=== PATIENT | female | born 1985 | race African-American/Black ===

== ENCOUNTER 2020-05-17 00:10 | Emergency (ER) | payer MEDICAID ==
[~2020-05-17] VITALS: Ht 185.4 cm; Wt 66.0 kg
[2020-05-17] MEDS ORDERED: ACETAMINOPHEN 500MG TABLET PO ONE (00:45)
[2020-05-17] MEDS ORDERED: LIDOCAINE HCL 4% CREAM 76GM TUBE TP ONE (00:45)
[2020-05-17] MEDS ORDERED: IBUPROFEN 800MG TABLET PO ONE (00:45)
[2020-05-17 00:47] VITALS: BP 122/78
== END 2020-05-17 01:49 | disposition home or self-care (01) ==
LOC: ER 00:10
DX: T24.001A Burn of unspecified degree of unspecified site of right lower limb, except ankle and foot, initial encounter (principal); T79.9XXA Unspecified early complication of trauma, initial encounter
CPT/HCPCS: 99283; Z7610

== ENCOUNTER 2025-08-30 14:49 | Inpatient (IN) | payer MEDICAID ==
[~2025-08-30] VITALS: Ht 170.2 cm; Wt 70.3 kg
[2025-08-30 14:52] VITALS: O2SAT 99
[2025-08-30 16:09] LABS: BASOPHILS % 0.2 % (0.0-2.0); EOSINOPHILS % 0.2 % (0.0-5.0); HEMATOCRIT. 34.8 % (36.0-48.0); HEMOGLOBIN. 11.2 g/dL (12.0-16.0); LYMPHOCYTES % 7.1 % (20.0-50.0); MEAN PLATELET VOLUME 8.9 fl (7.4-10.4); MONOCYTES % 8.0 % (2.0-8.0); NEUTROPHILS % 84.5 % (40.0-76.0); PLATELET 228 x1000/uL (130-400); RED BLOOD CELL COUNT 4.02 mill/uL (4.2-5.4); RED CELL DISTRIBUTION WIDTH 15.3 % (11.6-14.6)
[2025-08-30 16:26] LABS: CREATININE 0.9 mg/dL (0.6-1.0)
[2025-08-30 16:27] LABS: UREA NITROGEN BLOOD 8 mg/dL (9-23)
[2025-08-30 16:28] LABS: ASPARTATE AMINOTRANSFERASE 21 IU/L (<34); TROPONIN I HIGH SENSITIVITY < 4 ng/L (3.0-34)
[2025-08-30 16:29] LABS: BILIRUBIN DIRECT 0.1 mg/dL (<=3.0); BILIRUBIN TOTAL 0.5 mg/dL (0.1-1.0)
[2025-08-30 16:40] LABS: PROTEIN TOTAL 7.4 g/dL (6.0-8.3)
[2025-08-30 16:55] LABS: HCG SCREEN NEGATIVE
[2025-08-30] MEDS ORDERED: METHYLPREDNISOLONE 40MG/ML INJ IV ONE (17:15)
[2025-08-30] MEDS: ONDANSETRON HCL 4MG/2ML INJ IV ONE (17:30)
[2025-08-30] MEDS: KETOROLAC 15MG/ML VIAL IV ONE (17:30)
[2025-08-30] MEDS: METHYLPREDNISOLONE SOD SUCC 125MG/2ML (ACT-O-VIAL) IV NR (17:30)
[2025-08-30] MEDS: SODIUM CHLORIDE 0.9% 1,000 ML IV ONE (17:31)
[2025-08-30] MEDS: SODIUM CHLORIDE 0.9% 1,000 ML IV SCH (23:37)
[2025-08-31] VITALS (7 sets, daily range): BP systolic 91–128; BP diastolic 52–74; PULSE 58–79; RESP 15–20; TEMP 35.8–37.1; O2SAT 95–100
[2025-08-31] MEDS: KETOROLAC 15MG/ML VIAL IV PRN (10:07)
[2025-08-31] MEDS ORDERED: ONDANSETRON HCL 4MG/2ML INJ IV PRN (11:00)
[2025-08-31] MEDS ORDERED: ACETAMINOPHEN 325MG TABLET PO PRN (11:00)
[2025-08-31] MEDS: METHYLPREDNISOLONE SOD SUCC 1,000 MG in DEXT 5% WATER 100 ML IV SCH (14:56)
[2025-08-31] MEDS ORDERED: GADOTERATE MEGLUMINE 5 MMOL/10 ML VIAL IV ONE (15:17)
[2025-08-31] MEDS: DOCUSATE SODIUM 250MG CAPSULE PO SCH (17:00)
[2025-08-31 19:21] LABS: CLARITY URINE CLEAR (CLEAR); COLOR URINE YELLOW (YELLOW); GLUCOSE URINE NEGATIVE (NEGATIVE); KETONES URINE NEGATIVE (NEGATIVE); LEUKOCYTE ESTERASE URINE NEGATIVE (NEGATIVE); NITRITE URINE NEGATIVE (NEGATIVE); OCCULT BLOOD URINE NEGATIVE (NEGATIVE); PH URINE 6.0 (4.5-8.0); PROTEIN URINE TRACE (NEGATIVE); SPECIFIC GRAVITY URINE 1.039 (1.005-1.030); UROBILINOGEN URINE 1.0 E.U./dL (0.2-1.0)
[2025-08-31 19:31] LABS: *AMPHETAMINES SCREEN URINE NEGATIVE (NEGATIVE)
[2025-08-31 19:32] LABS: *BARBITURATES SCREEN URINE NEGATIVE (NEGATIVE); *BENZODIAZEPINES SCREEN URINE NEGATIVE (NEGATIVE); *COCAINE SCREEN URINE NEGATIVE (NEGATIVE); CANNABINOID URINE SCREEN NEGATIVE (NEGATIVE); ECSTASY MDMA SCREEN URINE NEGATIVE (NEGATIVE); METHADONE URINE SCREEN NEGATIVE (NEGATIVE); OPIATES URINE SCREEN NEGATIVE (NEGATIVE); PHENCYCLIDINE URINE SCREEN NEGATIVE (NEGATIVE)
[2025-08-31 20:30] LABS: BACTERIA URINE 1+; RBC URINE 0-2 /hpf (0-2); SQUAMOUS EPITHELIAL CELL URINE 1+ /lpf (RARE/1+); WBC URINE 0-2 /hpf (0-2)
[2025-09-01] VITALS: BP 105/65; PULSE 60; RESP 17; TEMP 36.3; O2SAT 98
[2025-09-01 04:00] VITALS: BP 103/60; PULSE 60; RESP 18; TEMP 36.4; O2SAT 99
[2025-09-01 08:00] VITALS: BP 110/73; PULSE 64; RESP 18; TEMP 36.8; O2SAT 100
[2025-09-01 12:00] VITALS: BP 105/63; PULSE 63; RESP 18; TEMP 36.6; O2SAT 100
[2025-09-01 16:00] VITALS: BP 119/79; PULSE 64; RESP 18; TEMP 36.4; O2SAT 100
[2025-09-01 20:00] VITALS: BP 118/73; PULSE 68; RESP 18; TEMP 36.4; O2SAT 98
[2025-09-02] VITALS: BP 105/59; PULSE 61; RESP 17; TEMP 36.3; O2SAT 99
[2025-09-02 04:00] VITALS: BP 99/61; PULSE 59; RESP 17; TEMP 36.3; O2SAT 99
[2025-09-02 08:00] VITALS: BP 120/69; PULSE 75; RESP 16; TEMP 36.5; O2SAT 100
[2025-09-02 12:00] VITALS: BP 122/83; PULSE 60; RESP 16; TEMP 36.6; O2SAT 99
[2025-09-02 16:00] VITALS: BP 121/78; PULSE 64; RESP 18; TEMP 36.6; O2SAT 100
[2025-09-02 17:09] VITALS: BP 120/80; PULSE 60; TEMP 97.5
== END 2025-09-02 19:40 | disposition home or self-care (01) | DRG 43 ==
LOC: ER 14:49 → 5WST 17:13 → EDBEDREQ 18:23 → 5WST 22:49
PROVIDERS: ADMIT Internal Medicine; ATTEND Internal Medicine
DX: G35.D Multiple sclerosis, unspecified (principal); D64.9 Anemia, unspecified; M54.30 Sciatica, unspecified side; R39.15 Urgency of urination; E83.42 Hypomagnesemia; Z79.52 Long term (current) use of systemic steroids; Z02.71 Encounter for disability determination
CPT/HCPCS: 36415; 70553; 80048; 80076; 80305; 81003; 83735; 84484; 84703; 85025; 86850; 86900; 93005; 93970; 99285; A4606; A9577; J1885; J2405; J2919; J2930; J7030; J7060